=== PATIENT | male | born 1975 | race Caucasian/White ===

== ENCOUNTER 2017-02-02 10:25 | Emergency (ER) | payer OTHER ==
[2017-02-02 11:42] LABS: HEMOGLOBIN 17.1 gm/dl (14.0-17.5); RED BLOOD COUNT 5.61 M/UL (4.20-5.50); WHITE BLOOD COUNT 7.6 K/UL (4.5-11.0)
[2017-02-02 12:04] LABS: BUN/CREATININE RATIO 13 (0-10)
== END 2017-02-02 15:10 | disposition home or self-care (01) ==
LOC: ER1 10:25
PROVIDERS: Physician Assistant
DX: J35.1 Hypertrophy of tonsils (principal); E11.65 Type 2 diabetes mellitus with hyperglycemia; I10 Essential (primary) hypertension; Z87.891 Personal history of nicotine dependence
CPT/HCPCS: 36415; 70491; 71020; 80053; 85025; 99284; J7050; Q9962

== ENCOUNTER 2020-09-10 03:16 | Emergency (ER) | payer OTHER ==
[2020-09-10 03:43] LABS: HEMOGLOBIN 18.7 gm/dl (14.0-17.5); RED BLOOD COUNT 6.05 M/UL (4.20-5.50)
[2020-09-10 04:09] LABS: BUN/CREATININE RATIO 16 (0-10)
[2020-09-10] MEDS ORDERED: LODINE CAP 300300 MG PO (05:05)
[2020-09-10] MEDS ORDERED: BENTYL 20MG TAB20 MG PO (05:05)
[2020-09-10] MEDS ORDERED: ZOFRAN ODT 4 MG4 MG PO (05:05)
== END 2020-09-10 05:18 | disposition home or self-care (01) ==
LOC: ER1 03:16
PROVIDERS: Physician Assistant
DX: R10.817 Generalized abdominal tenderness (principal); R11.0 Nausea; I10 Essential (primary) hypertension; E11.9 Type 2 diabetes mellitus without complications; Z87.19 Personal history of other diseases of the digestive system; Z90.49 Acquired absence of other specified parts of digestive tract
CPT/HCPCS: 80053; 81001; 82550; 82553; 83690; 84484; 85025; 93005; 96374; 96375; 99284; J1885; J2405; Q9967

== ENCOUNTER 2021-06-20 10:58 | Emergency (ER) | payer OTHER ==
[~2021-06-20] VITALS: Ht 177.8 cm; Wt 117.9 kg
[~2021-06-20 10:58] MED LIST: BENTYL 20MG TAB20 MG PO; LODINE CAP 300300 MG PO; ZOFRAN ODT 4 MG4 MG PO
[2021-06-20 12:04] LABS: HEMOGLOBIN 17.2 gm/dl (14.0-17.5); RED BLOOD COUNT 5.52 M/UL (4.20-5.50); WHITE BLOOD COUNT 7.8 K/UL (4.5-11.0)
[2021-06-20 12:30] LABS: BUN/CREATININE RATIO 13 (0-10)
== END 2021-06-20 15:20 | disposition home or self-care (01) ==
LOC: ER1 10:58
PROVIDERS: Emergency Medicine
DX: U07.1 COVID-19 (principal); E87.1 Hypo-osmolality and hyponatremia; R79.89 Other specified abnormal findings of blood chemistry; Z23 Encounter for immunization; I10 Essential (primary) hypertension; E11.9 Type 2 diabetes mellitus without complications; Z90.89 Acquired absence of other organs
CPT/HCPCS: 71045; 80053; 85025; 99284; M0243

== ENCOUNTER → 2022-01-19 | Outpatient (CLI) | payer OTHER | LOC: EXRD 09:11 | DX: M54.50 Low back pain, unspecified (principal); M43.17 Spondylolisthesis, lumbosacral region | CPT/HCPCS: 72110 ==

== ENCOUNTER → 2022-03-24 | Outpatient (CLI) | payer OTHER | LOC: KOH-I 14:00 | DX: J01.01 Acute recurrent maxillary sinusitis (principal) | CPT/HCPCS: 70486 ==